=== PATIENT | male | born 1995 | race Caucasian/White ===

== ENCOUNTER 2016-04-08 00:27 | Emergency (ER) | payer OTHER ==
[2016-04-08 00:36] VITALS: BP 119/89
[2016-04-08] MEDS ORDERED: HydroxyUREA CAP* 500 MG CAP PO ONE (01:23)
[2016-04-08] MEDS ORDERED: predniSONE TAB* 10 MG PO ONE (01:26)
[2016-04-08] MEDS ORDERED: hydrOXYzine HCL TAB* 50 MG ONE (01:27)
[2016-04-08] MEDS ORDERED: hydrOXYzine HCL TAB* 50 MG PO ONE (01:30)
[2016-04-08] MEDS ORDERED: Triamcinolone 0.5% OINT * 15 GM TUBE TOPICAL SCH (09:00)
--- NOTE | 2016-04-09 01:36 | ED ---
Skin Complaint - HPI Summary HPI Summary: Patient arrives to ED with CC of diffuse hives. He has had hives since this morning and was seen at his school clinic and given 40mg prednisone and benadryl. He states the hives had cleared up until he went to bed and they had returned. He states he recently switched to a new laundry detergent and washed his sheets with it. Denies airway compromise. Patient has several allergies, but none that he was in contact with today. - History of Current Complaint Chief Complaint: EDRashSkinAbscess Time Seen by Provider: 04/08/16 01:09 Stated Complaint: HIVES ALL OVER Hx Obtained From: Patient Onset/Duration: Started Hours Ago Skin Exposure Onset/Duration: Hours Ago Timing: Intermittent Onset Severity: Moderate Current Severity: Severe Pain Intensity: 0 Pain Scale Used: 0-10 Numeric Skin Location: Diffuse Character: Swelling, Pruritus, Hives, Redness, Painful Aggravating Symptom(s): Nothing Alleviating Symptom(s): Antihistamines - Allergy/Home Medications Allergies/Adverse Reactions: Allergies Allergy/AdvReac Type Severity Reaction Status Date / Time Peanut-containing Drug Allergy Anaphylatic Verified 04/08/16 00:37 Products Shock Tree Nuts Allergy Anaphylatic Verified 04/08/16 00:36 Shock legumes Allergy Anaphylatic Uncoded 04/08/16 00:37 Shock Home Medications: Home Medications Epinephrine [Epipen 2-Walter] 0.3 mg IM 04/08/16 [History] PMH/Surg Hx/FS Hx/Imm Hx Previously Healthy: Yes - Immunization History Date of Tetanus Vaccine: utd Date of Influenza Vaccine: utd Hx Pertussis Vaccination: Yes Immunizations Up to Date: Yes Infectious Disease History: No Infectious Disease History: Denies: Traveled Outside the [place] in Last 30 Days - Social History Occupation: Student Lives: Alone Alcohol Use: Occasionally Hx Substance Use: No Substance Use Type: Reports: Marijuana Substance Use Comment - Amount & Last Used: 3 days ago, 1/2 joint Smoking Status (MU): Never Smoked Tobacco Do You Chew or Dip Tobacco: No Have You Chewed or Dipped Tobacco in the LAST YEAR: No Review of Systems Constitutional: Negative Eyes: Negative Cardiovascular: Negative Respiratory: Negative Musculoskeletal: Negative Positive: Other - diffuse hives Neurological: Negative Positive: Anxious All Other Systems Reviewed And Are Negative: Yes Physical Exam Triage Information Reviewed: Yes Vital Signs On Initial Exam: Initial Vitals Temp Pulse Resp BP Pulse Ox 99.6 F 90 16 119/89 100 04/08/16 00:30 04/08/16 00:30 04/08/16 00:30 04/08/16 00:30 04/08/16 00:30 Vital Signs Reviewed: Yes Appearance: Positive: Well-Appearing, No Pain Distress, Well-Nourished Skin: Positive: Warm, Other - diffuse hives throughout body, severe - without airway compromise Eyes: Positive: Normal, EOMI Neck: Positive: Nontender, No Lymphadenopathy Respiratory/Lung Sounds: Positive: Clear to Auscultation Musculoskeletal: Positive: Normal, Strength/ROM Intact Neurological: Positive: Normal, Sensory/Motor Intact, Alert, Oriented to Person Place, Time, Speech Normal Psychiatric: Positive: Anxious AVPU Assessment: Alert - Jad Coma Scale Best Eye Response: 4 - Spontaneous Best Motor Response: 6 - Obeys Commands Coma Scale Total: 15 Diagnostics - Vital Signs Vital Signs Temp Pulse Resp BP Pulse Ox 04/08/16 00:30 99.6 F 90 16 119/89 100 - Laboratory Lab Statement: Any lab studies that have been ordered have been reviewed, and results considered in the medical decision making process. Course/Dx - Course Course Of Treatment: Patient given 40mg prednisone, atarax. Patient felt it was initially getting worse, but improved upon discharge. Patient sent home with prescription for prednisone, atarax. Patient with epi pen in hand. Will give topical corticosteroid for relief. - Differential Diagnoses - Skin Complaint Differential Diagnoses: Allergic Reaction, Drug Rash, Medication; Adverse Reaction, Urticaria - Diagnoses Provider Diagnoses: Hives Discharge - Discharge Plan Condition: Stable Disposition: HOME Prescriptions: hydrOXYzine HCL TAB* [Atarax TAB*] 50 mg PO TID PRN #15 tab MDD 3 PRN Reason: Itching predniSONE TAB* [Deltasone TAB*] 40 mg PO DAILY #6 tab Patient Education Materials: Urticaria (ED) Referrals: [facility] FILIPE Mishra [Primary Care Provider] - Additional Instructions: Take Hydroxyzine (atarax) three times daily as needed for hives/itching and anxiety Take Benadryl 50mg once at bedtime. Prednisone on day 1 in the morning : 50mg total (5 tabs of 10mg) starting Prednisone on day 2-4 in the morninmg Triamcinolone cream to areas of concern up to 4 times daily. Wash all bedding and clothing previously washed with detergent. If you feel symptoms are becoming worse, come back to ED. Call 911 and use EPI- pen if you are experiencing airway difficulties.
== END 2016-04-08 02:27 | disposition home or self-care (01) ==
LOC: ED 00:27
DX: L50.9 Urticaria, unspecified (principal); L29.9 Pruritus, unspecified; R22.9 Localized swelling, mass and lump, unspecified
CPT/HCPCS: 99282; A9270-GY